=== PATIENT | male | born 1960 | race African-American/Black ===

== ENCOUNTER 2017-02-23 12:41 | Emergency (ER) | payer SELFPAY ==
[~2017-02-23] VITALS: Ht 167.6 cm; Wt 78.5 kg
[2017-02-23] MEDS ORDERED: METF10002 PO (13:46)
[2017-02-23] MEDS ORDERED: ATOR40TA70 PO (13:46)
[2017-02-23] MEDS ORDERED: ASPI-1035 PO (13:46)
[2017-02-23] MEDS ORDERED: MULT-348 PO (13:46)
[2017-02-23] MEDS ORDERED: PIOG15TA13 PO (13:46)
[2017-02-23] MEDS ORDERED: DOCU-150 PO (13:46)
[2017-02-23 14:15] VITALS: BP 121/82
[2017-02-23] MEDS ORDERED: MAGNESIUM CITRATE 300ML SOLUTION PO ONE (14:30)
== END 2017-02-23 15:48 | disposition home or self-care (01) ==
LOC: ER 12:42
DX: K64.4 Residual hemorrhoidal skin tags (principal); K61.0 Anal abscess; E11.9 Type 2 diabetes mellitus without complications; K59.00 Constipation, unspecified; K62.89 Other specified diseases of anus and rectum; E78.00 Pure hypercholesterolemia, unspecified; F17.200 Nicotine dependence, unspecified, uncomplicated; Z79.82 Long term (current) use of aspirin
CPT/HCPCS: 99281; Z7610